=== PATIENT | female | born 1955 | race Caucasian/White ===

== ENCOUNTER → 2016-06-08 | Outpatient (CLI) | payer BC ==
[~2016-06-08] MED LIST: ALBU8.5H3 INH; ASCO-288 PO; CALC-378 PO; DICL75 PO; FOLI-49 PO; [UNRECOGNIZED DRUG - CODE] PO
--- NOTE | 2016-06-08 18:40 | HKNOTE ---
DATE OF SERVICE: 06/08/2016 The patient comes in for recheck on her right knee. 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 PHYSICAL EXAMINATION: GENERAL: She walks without a walking aid. VITAL SIGNS: Blood pressure 170/80, temperature 97.9. RIGHT KNEE: A full range of motion without pain. No swelling or effusion. MANAGEMENT: The patient will be seen again as necessary for re-evaluation. She is given a certific ate for return to work. Dictated By: KIANNA YARBROUGH/YUAN Conf#: [id number] DID#: [id number]
== END | disposition home or self-care (01) ==
LOC: HKI 13:40
DX: Z47.89 Encounter for other orthopedic aftercare (principal)
CPT/HCPCS: G0463

== ENCOUNTER → 2016-07-17 | Outpatient (CLI) | payer BC ==
[2016-07-17 17:34] LABS: BASOPHILS % 0.5 % (0.0-2.0); EOSINOPHILS # 0.3 10^3/ul (0.0-0.5); EOSINOPHILS % 3.4 % (0.0-7.0); HEMATOCRIT 41.5 % (37.0-47.0); HEMOGLOBIN 14.2 g/dl (12.0-16.0); LYMPHOCYTES # 3.3 10^3/ul (0.8-2.9); MEAN CORPUSCULAR HEMOGLOBIN 30.8 pg (29.0-33.0); MEAN CORPUSCULAR HGB CONC 34.2 g/dl (32.0-37.0); MEAN CORPUSCULAR VOLUME 90.1 fl (82.0-101.0); MEAN PLATELET VOLUME 7.4 fl (7.4-10.4); MONOCYTE # 0.6 10^3/ul (0.3-0.9); MONOCYTES % 7.6 % (0.0-11.0); NEUTROPHIL # 3.3 10^3/ul (1.6-7.5); NEUTROPHILS % 44.5 % (39.0-77.0); PLATELET COUNT 284 10^3/UL (140-440); RED BLOOD COUNT 4.61 10^6/ul (4.20-5.40); RED CELL DISTRIBUTION WIDTH 12.7 % (11.5-14.5); UNCORRECTED WBC 7.4 10^3/ul (4.8-10.8); WHITE BLOOD COUNT 7.4 10^3/ul (4.8-10.8)
[2016-07-17 17:37] LABS: CONDITION 1
[2016-07-17 17:52] LABS: ALBUMIN 4.1 g/dl (3.3-4.9)
[2016-07-17 17:53] LABS: POTASSIUM 3.8 mmol/L (3.5-5.1)
[2016-07-17 17:55] LABS: CREATININE 0.68 mg/dl (0.44-1.00)
[2016-07-17 17:56] LABS: ALBUMIN/GLOBULIN RATIO 1.46; BILIRUBIN,INDIRECT 0.4 mg/dl (0-1.1); BILIRUBIN,TOTAL 0.4 mg/dl (0.2-1.3); CALCIUM 9.6 mg/dl (8.4-10.2); TOTAL PROTEIN 6.9 g/dl (6.1-8.1)
[2016-07-17 17:58] LABS: C-REACTIVE PROTEIN 0.6 mg/dl (0.0-0.9)
== END | disposition home or self-care (01) ==
LOC: LAB 17:08
PROVIDERS: ATTEND Specialist
DX: L40.50 Arthropathic psoriasis, unspecified (principal)
CPT/HCPCS: 80053; 82306; 85025; 85651; 86140

== ENCOUNTER 2016-07-22 13:45 | Observation (INO) | payer BC ==
[~2016-07-22] VITALS: Ht 149.9 cm; Wt 69.0 kg
[2016-07-22 14:15] VITALS: BP 136/78; PULSE 66; RESP 18
[2016-07-22 15:04] VITALS: Ht 149.9 cm; Wt 69.0 kg
[2016-07-22] MEDS ORDERED: INFLIXIMAB 300 MG in SOD CHLORIDE 0.9% 300 ML IV ONE (16:30)
[2016-07-22 16:53] VITALS: BP 126/60; PULSE 65; RESP 18
[2016-07-22 17:05] VITALS: BP 117/56; PULSE 66; RESP 18
[2016-07-22 17:20] VITALS: BP 116/57; PULSE 68; RESP 18
[2016-07-22 18:00] VITALS: BP 109/77; PULSE 65; RESP 18
[2016-07-22 19:28] VITALS: BP 135/68; PULSE 99; RESP 16
== END 2016-07-22 19:30 | disposition home or self-care (01) ==
LOC: SDS 14:21 → EDSTATUS 14:45 → MS1 14:46
PROVIDERS: ADMIT Specialist; ATTEND Specialist
DX: L40.50 Arthropathic psoriasis, unspecified (principal)
CPT/HCPCS: 96413; 96415; G0378; J1745; J7050

== ENCOUNTER → 2016-08-25 | Outpatient (CLI) | payer BC ==
[2016-08-25 16:10] LABS: ADD SCAN DIFF NO
[2016-08-25 16:15] LABS: BASOPHILS % 0.4 % (0.0-2.0); EOSINOPHILS # 0.2 10^3/ul (0.0-0.5); EOSINOPHILS % 2.5 % (0.0-7.0); HEMATOCRIT 43.1 % (37.0-47.0); HEMOGLOBIN 14.3 g/dl (12.0-16.0); LYMPHOCYTES # 2.6 10^3/ul (0.8-2.9); MEAN CORPUSCULAR HGB CONC 33.2 g/dl (32.0-37.0); MEAN CORPUSCULAR VOLUME 90.4 fl (82.0-101.0); MEAN PLATELET VOLUME 9.1 fl (7.4-10.4); MONOCYTE # 0.5 10^3/ul (0.3-0.9); MONOCYTES % 7.4 % (0.0-11.0); NEUTROPHIL # 3.6 10^3/ul (1.6-7.5); NEUTROPHILS % 51.7 % (39.0-77.0); PLATELET COUNT 297 10^3/UL (140-415); RED BLOOD COUNT 4.77 10^6/ul (4.20-5.40); RED CELL DISTRIBUTION WIDTH 12.2 % (11.5-14.5); WHITE BLOOD COUNT 6.9 10^3/ul (4.8-10.8)
[2016-08-25 16:24] LABS: ALBUMIN 4.3 g/dl (3.3-4.9); POTASSIUM 4.2 mmol/L (3.5-5.1)
[2016-08-25 16:26] LABS: CREATININE 0.72 mg/dl (0.44-1.00)
[2016-08-25 16:27] LABS: ALBUMIN/GLOBULIN RATIO 1.38; BILIRUBIN,INDIRECT 0.6 mg/dl (0-1.1); BILIRUBIN,TOTAL 0.6 mg/dl (0.2-1.3); TOTAL PROTEIN 7.4 g/dl (6.1-8.1)
[2016-08-25 16:28] LABS: CALCIUM 9.4 mg/dl (8.4-10.2)
[2016-08-25 16:30] LABS: C-REACTIVE PROTEIN 1.9 mg/dl (0.0-0.9)
== END | disposition home or self-care (01) ==
LOC: LAB 15:40
PROVIDERS: ATTEND Specialist
DX: L40.50 Arthropathic psoriasis, unspecified (principal)
CPT/HCPCS: 80053; 82306; 85025; 85651; 86140

== ENCOUNTER → 2016-08-29 | Outpatient (CLI) | payer BC ==
[2016-08-29 19:37] LABS: SYNOVIAL FLUID TYPE Right Knee; SYNOVIAL FLUID VOLUME 45 mL (0-3.5)
[2016-08-29 19:38] LABS: LYMPHOCYTES,SYNOVIAL FLUID 10; NEUTROPHILS,SYNOVIAL FLUID 85 % (0-25); SYNOVIAL FLUID CLARITY Slightly Cloudy; SYNOVIAL FLUID COLOR Yellow; SYNOVIAL FLUID WBC 17533 /cmm (0-150)
--- NOTE | 2016-08-29 22:07 | HKNOTE ---
DATE OF SERVICE: 08/29/2016 MAIN COMPLAINT: Swelling and pain in the right knee. PHYSICAL EXAMINATION: The patient has an outbreak of psoriasis over the anterior aspect of her knee . Her vital signs are normal. The right knee is filled with fluid and it is difficult to flex the knee. No external sign of infec tion. MANAGEMENT: Under sterile conditions, the knee was aspirated of approximately 80 mL of somewhat jaclyn picious looking fluid. This was replaced with 2 mL of Kenalog with 2% lidocaine. The patient is going to get a Remicade injection tomorrow. She will be called with the result of her lab tests and she will be seen again as necessary. Dictated By: KIANNA YARBROUGH/YUAN Conf#: [id number] DID#: [id number]
== END | disposition home or self-care (01) ==
LOC: HKI 15:28
DX: M25.561 Pain in right knee (principal); M79.89 Other specified soft tissue disorders; L40.9 Psoriasis, unspecified
CPT/HCPCS: 20610; 87070; 89051; G0463

== ENCOUNTER 2016-08-30 14:56 | Observation (INO) | payer BC ==
[2016-09-02] VITALS (7 sets, daily range): BP systolic 130–139; BP diastolic 65–95; PULSE 71–78; RESP 16
[2016-09-02] MEDS ORDERED: INFLIXIMAB 300 MG in SOD CHLORIDE 0.9% 300 ML IV ONE (14:00)
== END 2016-09-02 18:35 | disposition home or self-care (01) ==
LOC: SUR 14:56 → MS1 09-02 14:07 → SDS 09-02 14:07 → UNDOFXSDCSVC 09-02 14:15 → SUR 09-02 18:35 → MS1 09-02 18:35 → EDSTATUS 11-02 12:04
PROVIDERS: ADMIT Specialist; ATTEND Specialist
DX: L40.50 Arthropathic psoriasis, unspecified (principal)
CPT/HCPCS: G0378; J1745; J7050

== ENCOUNTER → 2016-10-13 | Outpatient (CLI) | payer BC ==
[2016-10-13 13:16] LABS: ADD SCAN DIFF NO
[2016-10-13 13:20] LABS: BASOPHIL # 0.1 10^3/ul (0.0-0.1); BASOPHILS % 0.8 % (0.0-2.0); EOSINOPHILS # 0.2 10^3/ul (0.0-0.5); EOSINOPHILS % 2.4 % (0.0-7.0); HEMATOCRIT 44.6 % (37.0-47.0); HEMOGLOBIN 14.9 g/dl (12.0-16.0); LYMPHOCYTES # 2.6 10^3/ul (0.8-2.9); LYMPHOCYTES % 32.6 % (15.0-51.0); MEAN CORPUSCULAR HEMOGLOBIN 30.4 pg (29.0-33.0); MEAN CORPUSCULAR HGB CONC 33.4 g/dl (32.0-37.0); MEAN PLATELET VOLUME 9.2 fl (7.4-10.4); MONOCYTE # 0.6 10^3/ul (0.3-0.9); MONOCYTES % 7.8 % (0.0-11.0); NEUTROPHIL # 4.4 10^3/ul (1.6-7.5); PLATELET COUNT 329 10^3/UL (140-415); RED CELL DISTRIBUTION WIDTH 12.5 % (11.5-14.5); WHITE BLOOD COUNT 7.9 10^3/ul (4.8-10.8)
[2016-10-13 13:27] LABS: ADD UMIC NO; URINE BILIRUBIN (Dip) NEGATIVE (NEGATIVE); URINE BLOOD (Dip) NEGATIVE (NEGATIVE); URINE COLOR LT. YELLOW (YELLOW); URINE GLUCOSE (Dip) NEGATIVE (NEGATIVE); URINE KETONES (Dip) NEGATIVE (NEGATIVE); URINE LEUKOCYTE ESTERASE (Dip) NEGATIVE (NEGATIVE); URINE NITRITE (Dip) NEGATIVE (NEGATIVE); URINE TOTAL PROTEIN (Dip) NEGATIVE (NEGATIVE); URINE UROBILINOGEN (Dip) 0.2 E.U./dL (0.1-1.0)
[2016-10-13 13:39] LABS: ALBUMIN 4.7 g/dl (3.3-4.9)
[2016-10-13 13:42] LABS: ALBUMIN/GLOBULIN RATIO 1.27; BILIRUBIN,INDIRECT 0.7 mg/dl (0-1.1); BILIRUBIN,TOTAL 0.7 mg/dl (0.2-1.3); CREATININE 0.72 mg/dl (0.44-1.00); TOTAL PROTEIN 8.4 g/dl (6.1-8.1)
[2016-10-13 13:43] LABS: CALCIUM 9.7 mg/dl (8.4-10.2); CHOL/HDL RATIO 3.5 RATIO
== END | disposition home or self-care (01) ==
LOC: LAB 11:47
PROVIDERS: ATTEND Internal Medicine
DX: N39.0 Urinary tract infection, site not specified (principal); R73.03 Prediabetes; E78.5 Hyperlipidemia, unspecified
CPT/HCPCS: 80053; 80061; 81003; 83036; 85025; 85651

== ENCOUNTER → 2016-10-24 | Outpatient (CLI) | payer BC ==
--- NOTE | 2016-10-24 18:21 | RADRPT ---
PROCEDURE: XR Finger. CLINICAL INDICATION: Right second finger pain. TECHNIQUE: Three views of the right second finger are available for review. COMPARISON: None available FINDINGS: There is an arthroplasty of the second metacarpal phalangeal joint. There is fusion of the second p roximal interphalangeal joint. A kellie is present in the third metacarpal as seen previously. IMPRESSION: 1. Postoperative changes, stable when compared with 12/14/2015. RPTAT: QQ .Mani Haas MD, Date Time Electronically viewed and signed by .Mani Haas MD, on 10/24/2016 18:21 .R/
== END | disposition home or self-care (01) ==
LOC: RAD 15:21
PROVIDERS: ATTEND Internal Medicine
DX: M19.041 Primary osteoarthritis, right hand (principal); Z96.691 Finger-joint replacement of right hand
CPT/HCPCS: 73140

== ENCOUNTER 2016-10-28 12:15 | Observation (INO) | payer BC ==
[2016-10-28] MEDS ORDERED: INFLIXIMAB 300 MG in SOD CHLORIDE 0.9% 300 ML IV ONE (15:00)
[2016-10-28 15:31] VITALS: BP 130/69; PULSE 81; RESP 18
[2016-10-28 16:30] VITALS: BP 120/65; PULSE 73; RESP 20
[2016-10-28 17:06] VITALS: BP 133/65; PULSE 70; RESP 18
[2016-10-28 18:14] VITALS: BP 139/67; PULSE 73; RESP 20
[2016-10-28 19:31] VITALS: BP 138/78; RESP 20
== END 2016-10-28 19:45 | disposition home or self-care (01) ==
LOC: EDSTATUS 12:15 → MS1 14:03 → SDS 14:03 → MS1 19:45
PROVIDERS: ADMIT Specialist; ATTEND Specialist
DX: L40.50 Arthropathic psoriasis, unspecified (principal)
CPT/HCPCS: G0378; J1745; J7050

== ENCOUNTER → 2016-12-18 | Outpatient (CLI) | payer BC ==
[2016-12-18 18:43] LABS: ADD SCAN DIFF NO
[2016-12-18 19:37] LABS: BASOPHIL # 0.1 10^3/ul (0.0-0.1); BASOPHILS % 0.7 % (0.0-2.0); EOSINOPHILS # 0.2 10^3/ul (0.0-0.5); EOSINOPHILS % 2.7 % (0.0-7.0); HEMOGLOBIN 13.6 g/dl (12.0-16.0); LYMPHOCYTES # 2.9 10^3/ul (0.8-2.9); LYMPHOCYTES % 38.4 % (15.0-51.0); MEAN CORPUSCULAR HEMOGLOBIN 30.6 pg (29.0-33.0); MEAN CORPUSCULAR HGB CONC 33.2 g/dl (32.0-37.0); MEAN CORPUSCULAR VOLUME 92.1 fl (82.0-101.0); MEAN PLATELET VOLUME 9.7 fl (7.4-10.4); MONOCYTE # 0.6 10^3/ul (0.3-0.9); MONOCYTES % 7.7 % (0.0-11.0); NEUTROPHIL # 3.7 10^3/ul (1.6-7.5); NEUTROPHILS % 50.1 % (39.0-77.0); PLATELET COUNT 278 10^3/UL (140-415); RED BLOOD COUNT 4.45 10^6/ul (4.20-5.40); RED CELL DISTRIBUTION WIDTH 12.5 % (11.5-14.5); WHITE BLOOD COUNT 7.4 10^3/ul (4.8-10.8)
[2016-12-18 19:44] LABS: ALBUMIN 4.2 g/dl (3.3-4.9); ALBUMIN/GLOBULIN RATIO 1.35; BILIRUBIN,INDIRECT 0.1 mg/dl (0-1.1); BILIRUBIN,TOTAL 0.1 mg/dl (0.2-1.3); C-REACTIVE PROTEIN 0.7 mg/dl (0.0-0.9); CALCIUM 9.3 mg/dl (8.4-10.2); CREATININE 1.07 mg/dl (0.44-1.00); POTASSIUM 4.5 mmol/L (3.5-5.1); TOTAL PROTEIN 7.3 g/dl (6.1-8.1)
== END | disposition home or self-care (01) ==
LOC: LAB 18:30
PROVIDERS: ATTEND Specialist
DX: L40.50 Arthropathic psoriasis, unspecified (principal)
CPT/HCPCS: 80053; 85025; 85651; 86140

== ENCOUNTER 2016-12-21 17:04 | Observation (INO) | payer BC ==
[~2016-12-21] VITALS: Ht 149.9 cm; Wt 69.0 kg
[2016-12-24 14:00] VITALS: BP 136/76; PULSE 72; RESP 16; Ht 149.9 cm; Wt 69.0 kg
[2016-12-24] MEDS ORDERED: INFLIXIMAB 300 MG in SOD CHLORIDE 0.9% 300 ML IV SCH (15:00)
[2016-12-24 15:21] VITALS: BP 130/78; PULSE 73; RESP 16
[2016-12-24 15:58] VITALS: BP 122/66; PULSE 63; RESP 16
[2016-12-24 18:56] VITALS: BP 143/69; PULSE 63; RESP 18
== END 2016-12-24 18:55 | disposition home or self-care (01) ==
LOC: MS1 12-24 13:38
PROVIDERS: ADMIT Specialist; ATTEND Specialist
DX: L40.50 Arthropathic psoriasis, unspecified (principal)
CPT/HCPCS: 99217; J1745; J7050; G0378

== ENCOUNTER → 2017-02-09 | Outpatient (CLI) | payer BC ==
[2017-02-09 16:42] LABS: BASOPHIL # 0.1 10^3/ul (0.0-0.1); BASOPHILS % 0.8 % (0.0-2.0); EOSINOPHILS # 0.1 10^3/ul (0.0-0.5); EOSINOPHILS % 2.1 % (0.0-7.0); HEMATOCRIT 44.8 % (37.0-47.0); HEMOGLOBIN 15.3 g/dl (12.0-16.0); LYMPHOCYTES # 2.5 10^3/ul (0.8-2.9); LYMPHOCYTES % 41.8 % (15.0-51.0); MEAN CORPUSCULAR HEMOGLOBIN 30.5 pg (29.0-33.0); MEAN CORPUSCULAR HGB CONC 34.2 g/dl (32.0-37.0); MEAN CORPUSCULAR VOLUME 89.4 fl (82.0-101.0); MEAN PLATELET VOLUME 9.1 fl (7.4-10.4); MONOCYTE # 0.5 10^3/ul (0.3-0.9); MONOCYTES % 7.6 % (0.0-11.0); NEUTROPHILS % 47.4 % (39.0-77.0); PLATELET COUNT 285 10^3/UL (140-415); RED BLOOD COUNT 5.01 10^6/ul (4.20-5.40); RED CELL DISTRIBUTION WIDTH 12.5 % (11.5-14.5); WHITE BLOOD COUNT 6.1 10^3/ul (4.8-10.8)
[2017-02-09 17:29] LABS: ALBUMIN 4.6 g/dl (3.3-4.9); ALBUMIN/GLOBULIN RATIO 1.27; BILIRUBIN,INDIRECT 0.6 mg/dl (0-1.1); BILIRUBIN,TOTAL 0.6 mg/dl (0.2-1.3); CALCIUM 9.6 mg/dl (8.4-10.2); CREATININE 0.82 mg/dl (0.44-1.00); POTASSIUM 4.4 mmol/L (3.5-5.1); TOTAL PROTEIN 8.2 g/dl (6.1-8.1)
== END | disposition home or self-care (01) ==
LOC: LAB 16:11
PROVIDERS: ATTEND Internal Medicine Rheumatology
DX: L40.50 Arthropathic psoriasis, unspecified (principal); N18.6 End stage renal disease
CPT/HCPCS: 80053; 85025; 85651; 86140

== ENCOUNTER → 2017-02-13 | Outpatient (CLI) | payer BC ==
--- NOTE | 2017-02-13 15:30 | PN ---
Date/Time of Note Date/Time of Note DATE: 02/13/17 TIME: 15:24 Outpatient Progress Note Chief Complaint Right knee pain HPI 62-year-old female presents today for follow-up regarding right knee pain. Prolonged history of psoriatic arthritis. Patient's history is also significant for arthroscopy performed on 05/02/2016. Patient was last seen on where aspiration was performed as well as cortisone injection.Injections provided significant relief. Patient states that recently she went on a 1 night cruise which involved a prolonged period of time walking/ weightbearing which has flared up her pain. Pain is constant especially with weightbearing. Denies any falls or injury. Review of Systems Const: No Fever, no chills, no Fatigue, normal appetite, no diaphoresis. Resp: No SOB, no wheezing, no chest pain. CV: No chest pain, no palpitaions, no MILLER. Physical Exam Blood pressure is 134/73, temperature is 98.6, pulse is 81, respiratory rate is 12, height is 4 feet 1 inch, weight is 150 pounds General Appearance: well-developed, well-nourished, in no acute distress. Right knee: Psoriatic plaque anterior tibia on examination. Patient is flexing and extending without pain. Normal range of motion. No tenderness to palpation on exam today. Right knee is edematous.Normal sensory examination to light touch. Allergies Coded Allergies: Penicillins (Verified Allergy, Mild, RASH, 05/02/16) codeine (Verified Allergy, Mild, RASH, 05/02/16) hydromorphone (Verified Allergy, Mild, 05/02/16) meperidine (Verified Allergy, Mild, RASH, 05/02/16) morphine (Verified Allergy, Mild, 05/02/16) vancomycin (Verified Allergy, Mild, RASH; REDNESS AROUND NECK AND ARMS; ITCHING, 05/02/16) hydrocodone bit (Verified Allergy, Unknown, THROAT TIGHTENING, 05/02/16) Family Hx Patient History: Cardiac disorder 32 MOTHER Hypertension 33 FATHER 32 MOTHER Assessment/Plan Problems: (1) Psoriatic arthritis * Patient was provided verbal and written consent to proceed with right knee joint aspiration and cortisone injection. Area was marked to the superior medial compartment of the knee. Betadine swab used to sterilize/clean the region of injection site. 6 cc of 0.25% Marcaine injected to the knee for local anesthesia. After local anesthesia was achieved, 16-gauge needle connected to a 60 cc syringe was injected into the knee. About 30 cc of fluid were aspirated. Following joint aspiration 2 cc of Kenalog mixed with 6 cc of 0.25% Marcaine injected into the knee. Patient denies any complications. Patient was observed for about 3-5 minutes prior to discharge. * Continue with anti-inflammatories as needed. 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 * Follow-up as needed for repeat evaluation. Medications Home Meds Reported Medications Albuterol Sulfate* (Proair HFA*) 8.5 Gm Hfa.aer.ad, 2 PUFF INH Q6, INH 10/01/14 Acetaminophen (Tylenol Extra Strength Arthrit) 500 Mg Tablet, 500 MG PO DAILY Y for PAIN LEVEL 1-5 09/15/13 Calcium Carbonate/Vitamin D3 (Calcium + D 600 Mg Tablet) 1 Tab Tablet, 1 TAB PO DAILY 02/20/11 Folic Acid* (Folic Acid*) 1 Mg Tablet, 1 MG PO DAILY 02/20/11 Ascorbic Acid (Vitamin C) 500 Mg Tablet, 500 MG PO DAILY 02/20/11 Diclofenac Sodium* (Voltaren*) 75 Mg Tablet., 75 MG PO Q4 Y 02/20/11 ALEX NEGRON PA-C Feb 13, 2017 15:30
== END | disposition home or self-care (01) ==
LOC: HKI 14:49
DX: M25.561 Pain in right knee (principal); L40.50 Arthropathic psoriasis, unspecified
CPT/HCPCS: 20610; G0463

== ENCOUNTER 2017-02-17 13:54 | Outpatient (CLI) | payer BC ==
[~2017-02-17] VITALS: Ht 149.9 cm; Wt 139.0 kg
[2017-02-17 14:30] VITALS: BP 144/73; PULSE 72; RESP 18
[2017-02-17] MEDS ORDERED: INFLIXIMAB 300 MG in SOD CHLORIDE 0.9% 300 ML IV SCH (15:00)
[2017-02-17 15:28] VITALS: BP 121/77; PULSE 59; RESP 20
[2017-02-17 15:38] VITALS: Ht 149.9 cm; Wt 139.0 kg
[2017-02-17 15:50] VITALS: BP 121/65; PULSE 58; RESP 20
[2017-02-17 16:45] VITALS: BP 136/74; PULSE 52; RESP 18
[2017-02-17 17:30] VITALS: BP 134/76; PULSE 64; RESP 18
== END 2017-02-17 19:12 | disposition home or self-care (01) ==
LOC: UNDOADMOB 13:54 → SDS 13:54 → MS1 13:54 → EDSTATUS 16:19 → UNDODISOB 19:12 → SDS 19:12
PROVIDERS: ATTEND Internal Medicine Rheumatology
DX: L40.50 Arthropathic psoriasis, unspecified (principal)
CPT/HCPCS: 96365; 96366; J1745; J7050; G0378

== ENCOUNTER → 2017-02-23 | Outpatient (CLI) | payer BC ==
[2017-02-23 14:57] LABS: BASOPHIL # 0.1 10^3/ul (0.0-0.1); BASOPHILS % 0.6 % (0.0-2.0); EOSINOPHILS # 0.1 10^3/ul (0.0-0.5); EOSINOPHILS % 0.6 % (0.0-7.0); HEMATOCRIT 48.9 % (37.0-47.0); LYMPHOCYTES # 2.8 10^3/ul (0.8-2.9); LYMPHOCYTES % 28.2 % (15.0-51.0); MEAN CORPUSCULAR HEMOGLOBIN 30.1 pg (29.0-33.0); MEAN CORPUSCULAR HGB CONC 32.7 g/dl (32.0-37.0); MEAN CORPUSCULAR VOLUME 91.9 fl (82.0-101.0); MEAN PLATELET VOLUME 9.3 fl (7.4-10.4); MONOCYTE # 0.7 10^3/ul (0.3-0.9); MONOCYTES % 7.2 % (0.0-11.0); NEUTROPHIL # 6.2 10^3/ul (1.6-7.5); NEUTROPHILS % 62.7 % (39.0-77.0); PLATELET COUNT 321 10^3/UL (140-415); RED BLOOD COUNT 5.32 10^6/ul (4.20-5.40); RED CELL DISTRIBUTION WIDTH 12.8 % (11.5-14.5)
[2017-02-23 15:23] LABS: CALCIUM 9.9 mg/dl (8.4-10.2); CHOL/HDL RATIO 3.2 RATIO; CREATININE 0.78 mg/dl (0.44-1.00); POTASSIUM 4.4 mmol/L (3.5-5.1)
[2017-02-23 15:53] LABS: THYROID STIMULATING HORMONE 1.68 MIU/L (0.465-4.680)
== END | disposition home or self-care (01) ==
LOC: LAB 14:06
PROVIDERS: ATTEND Internal Medicine
DX: R73.03 Prediabetes (principal); E78.5 Hyperlipidemia, unspecified; E03.9 Hypothyroidism, unspecified
CPT/HCPCS: 80048; 80061; 83036; 84436; 84443; 85025

== ENCOUNTER → 2017-02-28 | Outpatient (CLI) | payer BC ==
--- NOTE | 2017-03-01 08:28 | RADRPT ---
PROCEDURE: CT Brain without contrast. CLINICAL INDICATION: Severe headache. TECHNIQUE: A CT of the brain without contrast was performed utilizing axial sections from the skul l base through the vertex. The patient was scanned without intravenous contrast enhancement. Sagitta l and coronal reformatted images were obtained using the data from the axial images. Total exam DLP is 819.92 mGy-cm. CTDIvol is 43.05 mGy. One or more of the following dose reduction techniques we re used: Automated exposure control, adjustment of the mA and/or kV according to patient size, use o f iterative reconstruction technique. COMPARISON: 03/24/2008. FINDINGS: There is normal wells-white matter differentiation. The ventricles and cisterns are normal. There is no intracranial hemorrhage or space-occupying lesion. There is no skull fracture or lytic lesion. IMPRESSION: 1. Normal noncontrast CT scan of the brain. RPTAT: QQ .Mani Haas MD, MD Date Time Electronically viewed and signed by .Mani Haas MD, on 03/01/2017 08:28 .R/
== END | disposition home or self-care (01) ==
LOC: C/S 15:22
PROVIDERS: ATTEND Internal Medicine
DX: R51 Headache (principal)
CPT/HCPCS: 70450

== ENCOUNTER 2017-03-02 15:53 | Emergency (ER) | payer BC ==
[~2017-03-02] VITALS: Ht 152.4 cm; Wt 71.5 kg
[2017-03-02 15:55] VITALS: Ht 152.4 cm; Wt 71.5 kg
--- NOTE | 2017-03-02 16:18 | ERA ---
ER Documentation Chief Complaint Date/Time DATE: 03/02/17 TIME: 16:17 Chief Complaint Complains of a headache today HPI 62-year-old female with history of psoriatic arthritis presents with a chief complaint of intermittent sharp shooting pains that are 7 out of 10 2-1/2 weeks. History of cervical plate 7 years ago placed by Dr. Winn. Patient has taken Fioricet and Tylenol with mild relief. Patient was evaluated 2 days ago and received a CT scan of the head that was unremarkable. Patient has an appointment with Dr. Winn and at 4 days. Patient denies any other rapidly progressive neurological deficits. Denies fever, recent illness, recent travel. Patient has no other complaints and describes no other associated manifestations. ROS All systems reviewed and are negative except as per history of present illness. Medications Home Meds Reported Medications Albuterol Sulfate* (Proair HFA*) 8.5 Gm Hfa.aer.ad, 2 PUFF INH Q6, INH 10/01/14 Acetaminophen (Tylenol Extra Strength Arthrit) 500 Mg Tablet, 500 MG PO DAILY Y for PAIN LEVEL 1-5 09/15/13 Calcium Carbonate/Vitamin D3 (Calcium + D 600 Mg Tablet) 1 Tab Tablet, 1 TAB PO DAILY 02/20/11 Folic Acid* (Folic Acid*) 1 Mg Tablet, 1 MG PO DAILY 02/20/11 Ascorbic Acid (Vitamin C) 500 Mg Tablet, 500 MG PO DAILY 02/20/11 Diclofenac Sodium* (Voltaren*) 75 Mg Tablet.dr, 75 MG PO Q4 Y 02/20/11 Allergies Allergies: Coded Allergies: Penicillins (Verified Allergy, Mild, RASH, 05/02/16) codeine (Verified Allergy, Mild, RASH, 05/02/16) hydromorphone (Verified Allergy, Mild, 05/02/16) meperidine (Verified Allergy, Mild, RASH, 05/02/16) morphine (Verified Allergy, Mild, 05/02/16) vancomycin (Verified Allergy, Mild, RASH; REDNESS AROUND NECK AND ARMS; ITCHING, 05/02/16) hydrocodone bit (Verified Allergy, Unknown, THROAT TIGHTENING, 05/02/16) PMhx/Soc History of Surgery: Yes (cervical surgery) Anesthesia Reaction: No Hx Neurological Disorder: No Hx Respiratory Disorders: No Hx Cardiac Disorders: No Hx Psychiatric Problems: No Hx Miscellaneous Medical Probl: Yes (arthritis) Hx Alcohol Use: No Hx Substance Use: No Hx Tobacco Use: No Smoking Status: Never smoker Physical Exam Vitals Vital Signs Date Time Temp Pulse Resp B/P Pulse Ox O2 Delivery O2 Flow Rate FiO2 03/02/17 15:55 98.3 80 20 173/73 98 Physical Exam Const: Overweight 62-year-old female no acute distress sitting on the bed with initial presentation. Head: Atraumatic normocephalic. Eyes: Normal Conjunctiva and EOMI, PERRLA bilaterally ENT: Normal External Ears, Nose and Mouth. Neck: Full range of motion..~ No meningismus. Resp: Clear to auscultation bilaterally Cardio: Regular rate and rhythm, no murmurs Abd: Soft, non tender, non distended. Normal bowel sounds Skin: No petechiae or rashes Back: No midline tenderness. Negative Adson's and East test. Full range of motion of the cervical neck. Pain unable to be reproduced. No midline or flank tenderness Ext: No cyanosis, or edema. 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 Neur: Awake and alert. Neurovascularly intact bilaterally. Psych: Normal Mood and Affect Procedures/MDM 62-year-old female with a chief complaint of sharp pains coming up from the neck 2.5 weeks and a history of metal plate in the cervical spine placed [address] Winn as described in history and physical examination. Patient received a head CT 2 days ago that was given the following read by the radiologist: Normal noncontrast CT scan of the brain. I will suspicion for intracranial pathology at this time. However a CT scan of the cervical spine was obtained and revealed the followin. Status post anterior cervical discectomy and fusion at C5-C6. Hardware appears intact and in appropriate position. Mature osseous bridging is seen. 2. At C6-C7, there is a trace anterolisthesis, and a moderate to prominent 6 mm left subarticular disc protrusion. There is resulting mild to moderate central canal stenosis, and left lateral recess stenosis, with probable mass effect on the left cord. There is mild appearing left foraminal stenosis. 3. Minimal disc protrusions at C3-C4 and C4-C5. Facet hypertrophy, moderate at C2-C3, and mild at other levels through the cervical spine. 4. Mild right foraminal stenosis at C2-C3. I reviewed the aforementioned impression with my attending Dr. Bal who has stated that outpatient therapy is appropriate due to lack of findings on physical exam. I have spoke with the patient regarding their condition and future management. They have verbally responded that they understand their status and treatment plan. The patients vitals are stable, and their current condition is appropriate for discharge. The patient will be given discharge instructions with return precautions. Departure Diagnosis: Primary Impression: Headache Qualified Code: R51 - Nonintractable headache, unspecified chronicity pattern , unspecified headache type Additional Impression: Psoriatic arthritis Condition: Stable Additional Instructions: Follow-up with specialist on Sunday. If you have any questions regarding medications, ask your pharmacist or us before you leave. If any adverse reactions occur while taking your medications, discontinue the treatment and return to the emergency department immediately. Take your medications as directed, and complete the entire course of treatment. KIERSTEN MORALEZ PA-C Mar 02, 2017 16:18
--- NOTE | 2017-03-02 17:02 | RADRPT ---
PROCEDURE: CT Cervical Spine without contrast. CLINICAL INDICATION: Pain TECHNIQUE: Multiple axial cuts through the cervical spine with coronal and sagittal reformats were obtained without contrast. The calculated radiation dose measures 582 mGy centimeters. The CTDI yan sures 31 mGy One or more of the following dose reduction techniques were used: Automated exposure control. Adjustment of the mA and/or kV according to patient size. Use of iterative reconstruction technique. COMPARISON: X-ray 02/28/2016 FINDINGS: There is straightening of the normal cervical lordosis. There is anterior cervical discectomy and fu nicole at C5-C6, with mature osseous bridging. Vertebral body heights are maintained. There is a trace anterolisthesis at C6-C7, 2 mm. There is moderate to severe disc space narrowing at C6-C7. There is no acute fracture identified. The atlantoaxial articulation displays moderate degenerative change.. There is normal craniocervica l alignment. C2-3: There is no gross disc abnormality. There is moderate right and mild left facet hypertrophy. T here is no bony central canal stenosis. There is mild right bony foraminal stenosis. There is no lef t bony foraminal stenosis.. C3-4: There is a minimal central disc protrusion. There is mild right facet hypertrophy. There is no significant left facet hypertrophy. There is no bony central canal stenosis. There is no bony robert inal stenosis.. C4-5: There is a minimal central disc protrusion. There is mild bilateral facet hypertrophy. There i s no bony central canal stenosis. There is no bony foraminal stenosis.. C5-6: There is interbody fusion. There is mild bilateral facet hypertrophy. There is no bony central canal or neural foraminal stenosis.. C6-7: There is a left subarticular disc protrusion, extending posteriorly up to approximately 6 mm. There is mild bilateral facet hypertrophy. There is mild to moderate central canal stenosis, and le ft lateral recess stenosis. There is mild appearing left foraminal stenosis. There is no right bony foraminal stenosis.. C7-T1: There is no gross disk abnormality. There is mild bilateral facet hypertrophy. There is no central canal or neural foraminal stenosis. There is no abnormal paravertebral soft tissue mass. IMPRESSION: 1. Status post anterior cervical discectomy and fusion at C5-C6. Hardware appears intact and in erin ropriate position. Mature osseous bridging is seen. 2. At C6-C7, there is a trace anterolisthesis, and a moderate to prominent 6 mm left subarticular d isc protrusion. There is resulting mild to moderate central canal stenosis, and left lateral recess stenosis, with probable mass effect on the left cord. There is mild appearing left foraminal stenosi s. 3. Minimal disc protrusions at C3-C4 and C4-C5. Facet hypertrophy, moderate at C2-C3, and mild at o ther levels through the cervical spine. 4. Mild right foraminal stenosis at C2-C3. RPTAT: AAQQ .Kashif Del Valle MD, Date Time Electronically viewed and signed by .Kashif Del Valle MD, on 03/02/2017 17:02 .T/
== END 2017-03-02 17:55 | disposition home or self-care (01) ==
LOC: FTE 15:53
DX: R51 Headache (principal); L40.50 Arthropathic psoriasis, unspecified
CPT/HCPCS: 72125

== ENCOUNTER → 2017-03-22 | Outpatient (CLI) | payer BC ==
[2017-03-22 19:18] LABS: BASOPHIL # 0.1 10^3/ul (0.0-0.1); BASOPHILS % 0.6 % (0.0-2.0); EOSINOPHILS # 0.1 10^3/ul (0.0-0.5); HEMATOCRIT 44.3 % (37.0-47.0); HEMOGLOBIN 14.7 g/dl (12.0-16.0); LYMPHOCYTES # 3.2 10^3/ul (0.8-2.9); LYMPHOCYTES % 34.4 % (15.0-51.0); MEAN CORPUSCULAR HEMOGLOBIN 30.8 pg (29.0-33.0); MEAN CORPUSCULAR HGB CONC 33.2 g/dl (32.0-37.0); MEAN CORPUSCULAR VOLUME 92.9 fl (82.0-101.0); MONOCYTE # 0.8 10^3/ul (0.3-0.9); MONOCYTES % 8.5 % (0.0-11.0); NEUTROPHIL # 5.1 10^3/ul (1.6-7.5); NEUTROPHILS % 55.1 % (39.0-77.0); PLATELET COUNT 287 10^3/UL (140-415); RED BLOOD COUNT 4.77 10^6/ul (4.20-5.40); RED CELL DISTRIBUTION WIDTH 13.2 % (11.5-14.5); WHITE BLOOD COUNT 9.3 10^3/ul (4.8-10.8)
[2017-03-22 19:53] LABS: ALANINE AMINOTRANSFERASE 39 IU/L (13-69); ALBUMIN 4.5 g/dl (3.3-4.9); ALBUMIN/GLOBULIN RATIO 1.45; ALKALINE PHOSPHATASE 96 IU/L (42-121); ANION GAP 16 (8-16); ASPARTATE AMINO TRANSFERASE 23 IU/L (15-46); BILIRUBIN,INDIRECT 0.4 mg/dl (0-1.1); BILIRUBIN,TOTAL 0.4 mg/dl (0.2-1.3); BLOOD UREA NITROGEN 17 mg/dl (7-20); CALCIUM 9.7 mg/dl (8.4-10.2); CARBON DIOXIDE 26 mmol/L (21-31); CHLORIDE 105 mmol/L (97-110); GLUCOSE 92 mg/dl (70-220); POTASSIUM 4.9 mmol/L (3.5-5.1); SODIUM 142 mmol/L (135-144); TOTAL PROTEIN 7.6 g/dl (6.1-8.1)
[2017-03-22 19:54] LABS: C-REACTIVE PROTEIN < 0.5 mg/dl (0.0-0.9)
== END | disposition home or self-care (01) ==
LOC: LAB 18:42
PROVIDERS: ATTEND Specialist
DX: M19.90 Unspecified osteoarthritis, unspecified site (principal)
CPT/HCPCS: 80053; 82306; 82652; 85025; 85651; 86140

== ENCOUNTER → 2017-03-23 | Outpatient (CLI) | payer BC ==
[2017-03-23 12:51] LABS: INR 0.8; PROTIME 11.1 Sec (12.2-14.2); PT RATIO 0.9
== END | disposition home or self-care (01) ==
LOC: LAB 11:58
PROVIDERS: ATTEND Internal Medicine
DX: D68.59 Other primary thrombophilia (principal)
CPT/HCPCS: 85610; 85730

== ENCOUNTER 2017-03-31 07:36 | Observation (INO) | payer BC ==
[2017-03-31] VITALS (10 sets, daily range): BP systolic 124–150; BP diastolic 59–79; PULSE 67–75; RESP 18–20; Ht 149.9 cm; Wt 71.1 kg
[~2017-03-31] VITALS: Ht 149.9 cm; Wt 71.1 kg
[2017-03-31] MEDS ORDERED: INFLIXIMAB 300 MG in SOD CHLORIDE 0.9% 300 ML IV SCH ×2 (17:47→18:00)
== END 2017-03-31 22:30 | disposition home or self-care (01) ==
LOC: MS1 13:25
PROVIDERS: ADMIT Specialist; ATTEND Specialist
DX: L40.50 Arthropathic psoriasis, unspecified (principal)
CPT/HCPCS: G0378; J1745; J7050

== ENCOUNTER → 2017-05-08 | Outpatient (CLI) | payer BC ==
[2017-05-08 19:13] LABS: BASOPHIL # 0.1 10^3/ul (0.0-0.1); BASOPHILS % 0.7 % (0.0-2.0); EOSINOPHILS # 0.2 10^3/ul (0.0-0.5); EOSINOPHILS % 1.9 % (0.0-7.0); HEMATOCRIT 40.8 % (37.0-47.0); LYMPHOCYTES # 2.5 10^3/ul (0.8-2.9); LYMPHOCYTES % 30.8 % (15.0-51.0); MEAN CORPUSCULAR HEMOGLOBIN 31.5 pg (29.0-33.0); MEAN CORPUSCULAR HGB CONC 34.3 g/dl (32.0-37.0); MEAN CORPUSCULAR VOLUME 91.7 fl (82.0-101.0); MEAN PLATELET VOLUME 9.1 fl (7.4-10.4); MONOCYTE # 0.6 10^3/ul (0.3-0.9); MONOCYTES % 7.2 % (0.0-11.0); NEUTROPHIL # 4.9 10^3/ul (1.6-7.5); NEUTROPHILS % 59.2 % (39.0-77.0); PLATELET COUNT 288 10^3/UL (140-415); RED BLOOD COUNT 4.45 10^6/ul (4.20-5.40); RED CELL DISTRIBUTION WIDTH 12.9 % (11.5-14.5); WHITE BLOOD COUNT 8.3 10^3/ul (4.8-10.8)
[2017-05-08 19:35] LABS: ALANINE AMINOTRANSFERASE 41 IU/L (13-69); ALBUMIN/GLOBULIN RATIO 1.29; ALKALINE PHOSPHATASE 85 IU/L (42-121); ANION GAP 15 (8-16); ASPARTATE AMINO TRANSFERASE 23 IU/L (15-46); BILIRUBIN,INDIRECT 0.3 mg/dl (0-1.1); BILIRUBIN,TOTAL 0.3 mg/dl (0.2-1.3); BLOOD UREA NITROGEN 18 mg/dl (7-20); CALCIUM 9.5 mg/dl (8.4-10.2); CARBON DIOXIDE 25 mmol/L (21-31); CHLORIDE 105 mmol/L (97-110); CREATININE 1.41 mg/dl (0.44-1.00); GLUCOSE 128 mg/dl (70-220); SODIUM 141 mmol/L (135-144); TOTAL PROTEIN 7.1 g/dl (6.1-8.1)
[2017-05-08 21:59] LABS: C-REACTIVE PROTEIN < 0.5 mg/dl (0.0-0.9)
== END | disposition home or self-care (01) ==
LOC: LAB 17:42
PROVIDERS: ATTEND Internal Medicine Rheumatology
DX: L40.50 Arthropathic psoriasis, unspecified (principal)
CPT/HCPCS: 80053; 82306; 85025; 85651; 86140

== ENCOUNTER 2017-05-12 12:23 | Observation (INO) | payer BC ==
[2017-05-12] VITALS (8 sets, daily range): BP systolic 119–138; BP diastolic 67–85; PULSE 73–80; RESP 18
[2017-05-12] MEDS ORDERED: INFLIXIMAB 300 MG in SOD CHLORIDE 0.9% 300 ML IV SCH ×3 (14:23→19:30)
== END 2017-05-12 23:30 | disposition home or self-care (01) ==
LOC: MS1 13:23
PROVIDERS: ADMIT Internal Medicine Rheumatology; ATTEND Internal Medicine Rheumatology
DX: L40.50 Arthropathic psoriasis, unspecified (principal)
CPT/HCPCS: 99217; J1745; J7050; G0378

== ENCOUNTER → 2017-05-29 | Outpatient (CLI) | END | disposition home or self-care (01) ==

== ENCOUNTER → 2017-06-18 | Outpatient (CLI) | END | disposition home or self-care (01) ==

== ENCOUNTER 2017-06-23 14:56 | Observation (INO) | END 2017-06-23 19:10 | disposition home or self-care (01) ==

== ENCOUNTER → 2017-08-10 | Outpatient (CLI) | END | disposition home or self-care (01) ==

== ENCOUNTER 2017-08-18 13:31 | Observation (INO) | END 2017-08-18 18:45 | disposition home or self-care (01) ==

== ENCOUNTER → 2017-09-20 | Outpatient (CLI) | END | disposition home or self-care (01) ==

== ENCOUNTER → 2017-10-02 | Outpatient (CLI) | END | disposition home or self-care (01) ==

== ENCOUNTER 2017-10-10 12:09 | Inpatient (IN) | END 2017-10-13 18:40 | disposition home or self-care (01) | DRG 203 ==

== ENCOUNTER 2017-11-15 20:51 | Emergency (ER) | END 2017-11-16 00:22 | disposition home or self-care (01) ==

== ENCOUNTER → 2017-12-03 | Outpatient (CLI) | END | disposition home or self-care (01) ==

== ENCOUNTER 2017-12-08 13:22 | Observation (INO) | END 2017-12-08 21:28 | disposition home or self-care (01) ==

== ENCOUNTER 2017-12-28 11:55 | Emergency (ER) | END 2017-12-28 18:11 | disposition home or self-care (01) ==

== ENCOUNTER 2018-01-19 13:44 | Observation (INO) | END 2018-01-19 19:00 | disposition home or self-care (01) ==

== ENCOUNTER → 2018-02-26 | Outpatient (CLI) | END | disposition home or self-care (01) ==

== ENCOUNTER → 2018-03-01 | Outpatient (CLI) | END | disposition home or self-care (01) ==

== ENCOUNTER 2018-03-02 13:35 | Observation (INO) | END 2018-03-02 19:30 | disposition home or self-care (01) ==

== ENCOUNTER → 2018-03-04 | Outpatient (CLI) | END | disposition home or self-care (01) ==

== ENCOUNTER 2018-04-08 18:05 | Emergency (ER) | END 2018-04-08 19:34 | disposition home or self-care (01) ==

== ENCOUNTER → 2018-04-08 | Outpatient (CLI) | END | disposition home or self-care (01) ==

== ENCOUNTER 2018-04-13 13:46 | Observation (INO) | END 2018-04-13 19:30 | disposition home or self-care (01) ==

== ENCOUNTER → 2018-05-07 | Outpatient (CLI) | END | disposition home or self-care (01) ==

== ENCOUNTER → 2018-05-16 | Outpatient (CLI) | END | disposition home or self-care (01) ==

== ENCOUNTER → 2018-07-02 | Outpatient (CLI) | payer BC ==
[~2018-07-02] MED LIST changes: +ALBU18HF INHALATION; -ALBU8.5H3 INH; -ASCO-288 PO; -CALC-378 PO; -DICL75 PO; -FOLI-49 PO; +MECL12.574 PO; +MULT-860 PO; -[UNRECOGNIZED DRUG - CODE] PO
== END | disposition home or self-care (01) ==
LOC: LAB 19:39
PROVIDERS: ATTEND Specialist
DX: L40.50 Arthropathic psoriasis, unspecified (principal)
CPT/HCPCS: 80053; 82306; 85025; 85651; 86140

== ENCOUNTER → 2018-07-19 | Outpatient (CLI) | payer BC | END | disposition home or self-care (01) | LOC: LAB 12:56 | PROVIDERS: ATTEND Internal Medicine | DX: J20.9 Acute bronchitis, unspecified (principal); D64.9 Anemia, unspecified; L40.50 Arthropathic psoriasis, unspecified; R07.89 Other chest pain | CPT/HCPCS: 71046; 80053; 81001; 85025; 93005 ==

== ENCOUNTER 2018-07-29 09:04 | Day surgery (SDC) | payer BC ==
--- NOTE | 2018-07-26 11:10 | HP ---
DATE OF ADMISSION: 07/19/2018 HISTORY OF PRESENT ILLNESS: The patient is a 63-year-old lady who is being admitted on elective basi s for right knee arthroscopy and meniscus repair. The patient has been having severe recurrent pain, right knee and had been recommended arthroscopic repair. She has history of psoriatic arthritis. MEDICATIONS: 1. Voltaren 75 mg b.i.d. 2. Ventolin inhaler as needed. 3. Pantoprazole 40 mg p.o. daily. 4. Remicade q.8h. ALLERGIES: 1. PENICILLIN. 2. MORPHINE. 3. DILAUDID. 4. Query TO CODEINE. 5. VANCOMYCIN. REVIEW OF SYSTEMS: HEAD: No history of headaches. The patient has had recurrent neck pain. History of cervical radicu lopathy, status post surgery for same. EYES: No blurry vision or glaucoma. ENT: Noncontributory. NECK: No history of thyroid disease. CHEST: No bronchitis, hay fever. The patient does have recurrent asthmatic bronchitis. No history of smoking. No history of TB, no history of hemoptysis. CARDIOVASCULAR: No PND, orthopnea, palpitations. GASTROINTESTINAL: No constipation, diarrhea, change in bowel habits. GENITOURINARY: No dysuria, hematuria, kidney stones. Has had a hysterectomy. Pap smears have been negative after that. PAST SURGICAL HISTORY: Other surgeries also include cholecystectomy, prior right knee arthroscopy, r ight wrist arthroplasty status post revision, surgery for strabismus. ADDENDUM: The patient has also had a transthoracic echocardiogram done in 01/2018, which showed norm al EF of 62%, no valvular abnormalities. PHYSICAL EXAMINATION: GENERAL: The patient is an average-built female who is presently in no acute distress. VITAL SIGNS: Blood pressure 130/80, respiration 20 per minute. HEENT: Head normocephalic. No pallor, cyanosis, or icterus. Tongue is moist. NECK: Supple. No thyromegaly, bruits or lymphadenopathy. LUNGS: Clinically clear. HEART: S1, S2 heard, no definite gallops. ABDOMEN: Soft, nontender, no hepatosplenomegaly. EXTREMITIES: No edema. Pedals 2+ bilaterally. Homans negative. NEUROLOGIC: No localizing or lateralizing signs. PELVIC, RECTAL, BREAST: Deferred at patient's request. LABORATORY DATA: WBC count 6.2 on 07/19/2018, hematocrit 44, platelet count is 275,000. Sodium 141, potassium 4, BUN 13, creatinine 0.7, glucose 94. UA shows 2+ leukocyte esterase (patient not sympto matic). EKG shows normal sinus rhythm, no acute changes. Chest x-ray shows elevated right hemidiaph ragm. Chest clear. IMPRESSION: 1. Meniscus tear, right knee for arthroscopic surgery. 2. Psoriatic arthritis, stable. PLAN: Patient's overall medical condition is stable for the proposed surgery. Dictated By: ARIES REESE MD SR/YUAN Conf#: [id number] DID#: [id number]
[~2018-07-29] VITALS: Ht 149.9 cm; Wt 69.1 kg
[2018-07-29] VITALS (9 sets, daily range): BP systolic 113–155; BP diastolic 57–75; PULSE 80–90; RESP 15–29; Ht 149.9 cm; Wt 69.1 kg
[~2018-07-29 09:04] MED LIST changes: +CEFAZOLIN 1 GM INJ ONE; +SEVOFLURANE 15 MIN ONE
[2018-07-29] MEDS ORDERED: ROPIVACAINE 0.5 % 30 ML VIAL ONE (11:08)
--- NOTE | 2018-07-29 11:16 | PREAC ---
Date/Time of Note Date/Time of Note DATE: 07/29/18 TIME: 11:13 Anesthesia Eval and Record Evaluation Time Pre-Procedure Interview DATE: 07/29/18 TIME: 11:13 Age 63 Sex female NPO: 8 hrs Preoperative diagnosis Rt Knee meniscus tear Planned procedure Rt Knee arthroscopy meniscus repair Past Medical History Past Medical History: None Pulm: Asthma GI: Obesity Surgery & Anesthesia Issues No known issue Meds Anticoagulation: No Beta Mj within 24 hr: No Reason Beta Mj not given: Pt. not on B-Mj Reported Medications Albuterol Sulfate* (Ventolin HFA*) 18 Gm Hfa.aer.ad, 2 PUFF INHALATION Q4H, #1 INHALER 12/28/17 Mu-Vits-Min Th/Lycopene/Lutein (CENTRUM SILVER TABLET) 1 Each Tablet, 1 EACH PO, TAB 10/10/17 Discontinued Scripts Meclizine Hcl* (Antivert*) 12.5 Mg Tab, 12.5 MG PO Q6H PRN for DIZZINESS, #20 TAB Prov:OLIVIA HUMPHREY MD 12/28/17 Current Medications Influenza Virus Vaccine Quadrival (Fluzone) 0.5 ml ONCE ONCE IM* ; Start 07/30/18 at 10:00; Stop 07/30/18 at 10:01 Meds reviewed: Yes Allergies Coded Allergies: Penicillins (Verified Allergy, Mild, RASH, 07/29/18) codeine (Verified Allergy, Mild, RASH, 07/29/18) hydromorphone (Verified Allergy, Mild, 07/29/18) meperidine (Verified Allergy, Mild, RASH, 07/29/18) morphine (Verified Allergy, Mild, 07/29/18) vancomycin (Verified Allergy, Mild, RASH; REDNESS AROUND NECK AND ARMS; ITCHING, 07/29/18) hydrocodone bit (Verified Allergy, Unknown, THROAT TIGHTENING, 07/29/18) Allergies Reviewed: Yes Labs/Studies Labs Reviewed: Reviewed by anesthesiologist test: N/A Studies: ECG Pre-procedure Exam Last vitals Vital Signs Date Temp Pulse Resp B/P (MAP) Pulse Ox O2 O2 Flow FiO2 Time Delivery Rate 07/29/18 99.4 83 18 138/75 96 Room Air 10:26 (96) Airway: Adequate mouth opening, Adequate thyromental dist Mallampati: Mallampati II Teeth: Normal Lung: Normal Heart: Normal ASA Physical Status ASA physical status: 3 Emergency: None Planned Anesthetic General/MAC: LMA Planned Pain Management Parenteral pain med, Local by surgeon Pre-operative Attestations Prior to commencing anesthesia and surgery, the patient was re-evaluated, there was verification of: *The patient's identity *The results of appropriate recent lab work and preoperative vital signs *The above evaluation not changing prior to induction *Anesthetic plan, risk benefits, alternative and complications discussed with patient/family; questions answered; patient/family understands, accepts and wishes to proceed. JAYCOB OSWALD MD Jul 29, 2018 11:16
[2018-07-29] MEDS ORDERED: MIDAZOLAM 1 MG/ML 2 ML INJ ONE (11:20)
[2018-07-29] MEDS ORDERED: FENTAnyl 50 MCG/ML VIAL ONE ×3 (11:21→13:05)
[2018-07-29] MEDS ORDERED: hydrALAzine 20 MG INJ ONE (12:25)
[2018-07-29] MEDS ORDERED: ONDANSETRON 4 MG INJ ONE (12:44)
[2018-07-29] MEDS ORDERED: METOCLOPRAMIDE 10 MG INJ ONE (12:45)
[2018-07-29] MEDS ORDERED: PROPOFOL 20 ML ONE (12:47)
[2018-07-29] MEDS ORDERED: LIDOCAINE 2% (SDV) 5 ML INJ ONE (12:47)
[2018-07-29] MEDS ORDERED: ETOMIDATE 20 MG INJ ONE (12:47)
--- NOTE | 2018-07-29 13:04 | PAC ---
Date/Time of Note Date/Time of Note DATE: 07/29/18 TIME: 13:04 Post-Anesthesia Notes Post-Anesthesia Note Last documented vital signs Vital Signs Date Temp Pulse Resp B/P (MAP) Pulse Ox O2 O2 Flow FiO2 Time Delivery Rate 07/29/18 99.4 83 18 138/75 96 Room Air 10:26 (96) Activity: WNL Respiratory function: WNL Cardiovascular function: WNL Mental status: Baseline Pain reasonably controlled: Yes Hydration appropriate: Yes Nausea/Vomiting absent: Yes Comments BP:117/56, P:78, Spo2:100%, T:98,8 JAYCOB OSWALD MD Jul 29, 2018 13:04
[2018-07-29] MEDS: FENTAnyl 50 MCG/ML VIAL IV PRN ×4 (13:06→13:38)
[2018-07-29] MEDS ORDERED: SOD CHLORIDE 0.9% 1,000 ML IV SCH (13:07)
--- NOTE | 2018-07-29 13:07 | SIPON ---
Date/Time of Note Date/Time of Note DATE: 07/29/18 TIME: 13:06 Operative Report Preoperative Diagnosis Right knee medial meniscus tear, lateral meniscus fraying, chondromalacia Postoperative Diagnosis Right knee medial meniscus tear, lateral meniscus fraying, chondromalacia Operation/Procedure Performed Right knee partial medial meniscectomy, partial lateral meniscectomy, chondroplasty Surgeon see signature line assistant auditor Noah Isaac MD Anesthesia: general Estimated blood loss: minimal Transfusion Required none Specimen none Grafts/Implants none Complications none COLETTE GRIFFIN MD Jul 29, 2018 13:07
[2018-07-29] MEDS ORDERED: METOCLOPRAMIDE 10 MG INJ IV PRN (13:30)
[2018-07-29] MEDS ORDERED: morphine 2 MG INJ IV PRN (13:30)
[2018-07-29] MEDS ORDERED: OXYCODONE/ACETAMINOPHEN (5/325) TAB PO PRN ×2 (13:30)
[2018-07-29] MEDS ORDERED: ONDANSETRON 4 MG INJ IV PRN ×2 (13:30)
[2018-07-29] MEDS ORDERED: KETOROLAC 30 MG INJ IV PRN (13:30)
[2018-07-29] MEDS ORDERED: DIPHENHYDRAMINE 50 MG INJ IV PRN (13:30)
--- NOTE | 2018-07-29 17:00 | OPR ---
DATE OF OPERATION: 07/29/2018 PREOPERATIVE DIAGNOSIS: Tear of medial and lateral menisci, right knee. POSTOPERATIVE DIAGNOSES: 1. Tear of the mid zone and posterior horn medial meniscus, right knee. 2. Tear of the posterolateral minutes. 3. 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 4. 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 OPERATIONS PERFORMED: 1. Arthroscopy, right knee. 2. Partial medial meniscectomy. 3. Partial lateral meniscectomy. 4. Chondroplasty patella. SURGEON: Colette Nam MD SENIOR STOCK PLAN ADMINISTRATOR: Noah Isaac MD ANESTHESIA: General. TOURNIQUET TIME: 0. DESCRIPTION OF PROCEDURE: The patient was taken to the operating room and placed in the supine posit ion. Satisfactory general anesthesia was administered, 2 grams Ancef intravenously. The right leg w as prepped and draped in usual manner. Exam under anesthesia revealed full range of motion, AP drawe r and Abe 1+, pivot shift negative, no varus-valgus instability. Standard arthroscopic portals were used. Undersurface of patella had some grade II to III chondromal acia along the inferior pole of patella grade I to II medially and laterally. Trochlea had some grad e I to II chondromalacia. Medial synovial shelf was absent. Lateral gutter had no loose bodies. Po pliteus was intact. There was some fraying of the posterior horn and anterior horn of the lateral me niscus, minimal chondromalacia grade I of the lateral compartment. Anterior and posterior cruciates were intact at origins and insertions. Medial compartment was entered. There was some grade II marychuy dromalacia of the medial compartment. There was some degenerative tearing along the mid zone and pos terior horn. Probe was inserted and the tear was palpated. Using curved and straight baskets, the t ear was saucerized from the mid zone of the posterior horn. Shaver was used to smooth and contour th e edges and remove all loose debris. Chondroplasty was performed along the medial femoral condyle. Arthroscope maneuvered posteromedially. No other abnormalities were seen. The meniscal attachment w as intact. Anterior and posterior cruciates were palpated and were intact. Ligamentum mucosum was c auterized and cut. Lateral meniscus tear was debrided with curved and straight baskets and smoothed with a shaver. Chondroplasty was performed along the patella and suprapatellar scar bands were excis ed as well. Knee was irrigated clear. Wounds were closed with Steri-Strips and infiltrated with 0.5 % ropivacaine. Compression dressing was applied. The patient was brought to recovery room in stable condition. Interprocedure sponge and needle count was correct. The patient tolerated procedure wel l. BULLDOZER/LOADER/COMPACTOR/SCRAPER ORTHOPEDIC SURGEON: During the procedure, an assistant curator orthopedic surgeon was used at [facility]. The assistant curator helped with distracting the knee, manipulating the arthroscope and assisted in excision of the meniscus. Without a skilled orthopedic surgeon assistant curator, this could not been done and thus should be compensated appropriately. Dictated By: COLETTE WILLIAMSON/YUAN Conf#: [id number] DID#: [id number]
== END 2018-07-29 17:14 | disposition home or self-care (01) ==
LOC: SDS 09:04
PROVIDERS: ATTEND Orthopaedic Surgery
DX: M23.221 Derangement of posterior horn of medial meniscus due to old tear or injury, right knee (principal); M23.251 Derangement of posterior horn of lateral meniscus due to old tear or injury, right knee; M94.261 Chondromalacia, right knee; J45.909 Unspecified asthma, uncomplicated; E66.9 Obesity, unspecified; Z68.30 Body mass index [BMI] 30.0-30.9, adult
CPT/HCPCS: 29880; J0360; J0690; J2250; J2405; J2765; J2795; J3010

== ENCOUNTER → 2018-09-23 | Outpatient (CLI) | payer BC ==
[~2018-09-23] MED LIST changes: -CEFAZOLIN 1 GM INJ ONE; -MECL12.574 PO; -SEVOFLURANE 15 MIN ONE
== END | disposition home or self-care (01) ==
LOC: LAB 18:38
PROVIDERS: ATTEND Internal Medicine Rheumatology
DX: L40.50 Arthropathic psoriasis, unspecified (principal)
CPT/HCPCS: 80053; 82306; 85025; 85651; 86140

== ENCOUNTER 2018-09-28 13:56 | Observation (INO) | payer BC ==
[~2018-09-28] VITALS: Ht 149.9 cm; Wt 67.1 kg
[2018-09-28 14:38] VITALS: Ht 149.9 cm; Wt 67.1 kg
[2018-09-28 15:59] VITALS: BP 125/72; PULSE 67; RESP 16
[2018-09-28] MEDS ORDERED: INFLIXIMAB 300 MG in SOD CHLORIDE 0.9% 300 ML IV SCH (16:00)
[2018-09-28 16:05] VITALS: BP 129/71; PULSE 59; RESP 18
[2018-09-28 16:09] VITALS: BP 135/75; PULSE 62; RESP 18
[2018-09-28 16:39] VITALS: BP 129/65; PULSE 58; RESP 20
[2018-09-28 17:10] VITALS: BP 132/68; PULSE 61; RESP 20
[2018-09-28 18:24] VITALS: BP 153/72; PULSE 67; RESP 18
== END 2018-09-28 19:40 | disposition home health service (06) ==
LOC: SDS 13:56 → UNDOADMOB 13:56 → MS1 13:56 → EDSTATUS 14:54 → SDS 19:20 → MS1 19:20 → SDS 09-30 13:56
PROVIDERS: ADMIT Internal Medicine Rheumatology; ATTEND Internal Medicine Rheumatology
DX: L40.50 Arthropathic psoriasis, unspecified (principal)
CPT/HCPCS: G0378; J1745; J7050

== ENCOUNTER → 2018-11-04 | Outpatient (CLI) | payer BC | END | disposition home or self-care (01) | LOC: LAB 18:30 | PROVIDERS: ATTEND Specialist | DX: L40.50 Arthropathic psoriasis, unspecified (principal) | CPT/HCPCS: 80053; 85025; 85651; 86140 ==

== ENCOUNTER 2018-11-09 07:33 | Observation (INO) | payer BC ==
[2018-11-09 14:38] VITALS: BP 131/60; PULSE 57; RESP 18
[2018-11-09 14:54] VITALS: BP 124/58; PULSE 60; RESP 18
[2018-11-09] MEDS ORDERED: INFLIXIMAB 300 MG in SOD CHLORIDE 0.9% 300 ML IV ONE (15:00)
[2018-11-09 15:41] VITALS: BP 124/57; PULSE 57; RESP 18
[2018-11-09 15:54] VITALS: BP 120/58; PULSE 56; RESP 18
== END 2018-11-09 20:00 | disposition home or self-care (01) ==
LOC: MS1 13:23
PROVIDERS: ADMIT Specialist; ATTEND Specialist
DX: L40.50 Arthropathic psoriasis, unspecified (principal)
CPT/HCPCS: 99217; J1745; J7050; G0378

== ENCOUNTER → 2018-12-16 | Outpatient (CLI) | payer BC | END | disposition home or self-care (01) | LOC: LAB 15:20 | PROVIDERS: ATTEND Specialist | DX: L40.50 Arthropathic psoriasis, unspecified (principal) | CPT/HCPCS: 80053; 82306; 85025; 85651; 86140 ==

== ENCOUNTER 2018-12-21 14:16 | Day surgery (SDC) | payer BC ==
[2018-12-21 14:30] VITALS: BP 110/64; PULSE 62; RESP 19
[2018-12-21] MEDS ORDERED: INFLIXIMAB 300 MG in SOD CHLORIDE 0.9% 300 ML IV ONE (15:22)
[2018-12-21 16:15] VITALS: BP 103/56; PULSE 62; RESP 18
[2018-12-21 16:26] VITALS: BP 103/79; PULSE 70; RESP 16
[2018-12-21 17:00] VITALS: BP 110/74; PULSE 70; RESP 16
[2018-12-21 17:30] VITALS: BP 112/74; PULSE 72; RESP 16
[2018-12-21 18:45] VITALS: BP 113/59; PULSE 63; RESP 18
== END 2018-12-21 19:18 | disposition home or self-care (01) ==
LOC: ZBAR 14:16 → MS1 14:16 → EDSTATUS 14:31 → ZBAR 14:32
PROVIDERS: ATTEND Specialist
DX: L40.50 Arthropathic psoriasis, unspecified (principal)
CPT/HCPCS: J1745; J7050

== ENCOUNTER 2019-01-25 17:41 | Emergency (ER) | payer BC ==
[~2019-01-25] VITALS: Ht 149.9 cm; Wt 69.9 kg
[~2019-01-25 17:41] MED LIST changes: +BEN50 PO; +CEPH-443 PO; +PRED20TA PO
[2019-01-25 17:42] VITALS: BP 155/66; PULSE 72; RESP 16; Ht 149.9 cm; Wt 69.9 kg
[2019-01-25] MEDS ORDERED: CEPHALEXIN 500 MG CAP PO ONE (19:00)
[2019-01-25] MEDS ORDERED: predniSONE 20 MG TAB PO ONE (19:00)
[2019-01-25] MEDS ORDERED: RANITIDINE 150 MG TAB PO ONE (19:00)
== END 2019-01-25 19:15 | disposition home or self-care (01) ==
LOC: FTE 17:41
DX: S50.862A Insect bite (nonvenomous) of left forearm, initial encounter (principal); J45.909 Unspecified asthma, uncomplicated; W57.XXXA Bitten or stung by nonvenomous insect and other nonvenomous arthropods, initial encounter; Y92.9 Unspecified place or not applicable
CPT/HCPCS: 99283; J7512

== ENCOUNTER → 2019-01-27 | Outpatient (CLI) | payer BC | END | disposition home or self-care (01) | LOC: LAB 17:35 | PROVIDERS: ATTEND Specialist | DX: L40.50 Arthropathic psoriasis, unspecified (principal) | CPT/HCPCS: 80053; 85025; 85651; 86140 ==